=== PATIENT | female | born 1930 | race Caucasian/White ===

== ENCOUNTER 2017-04-27 16:58 | Emergency (ER) | payer MEDICARE, MEDICAID ==
[~2017-04-27] VITALS: Ht 152.4 cm; Wt 72.7 kg
[~2017-04-27 16:58] MED LIST: ALEN70TA2 PO; CHOL3000 PO; CLOT12CR TP; FERR-83 PO; HEPARIN SOD SUBQ; LEVO750T9 PO; METH500T5 PO; METO5TAB78 PO; METRONIDAZOLE PO; MYCC TOPICAL; Oxycodone Hcl PO; POLY17PO6 PO
[2017-04-27 17:01] VITALS: BP 164/77; PULSE 97; RESP 16; O2SAT 100
--- NOTE | 2017-04-27 21:23 | ED.REPORT ---
HPI-Trauma Minor / Fall Date of Service Apr 27, 2017 ED Provider: Dr. Taylor Pt is an 86 y/o female w/ a hx of HTN, osteoporosis, presenting to the ED with her daughter due to mechanical ground level fall which occurred today. The patient tripped over a cow trough and landed hitting the left side of her face and chest. She c/o associated left-sided pleuritic chest pain. She does not feel any clicks or movements with deep breaths. Pt denies change in LOC, vision changes, neck pain, abdominal pain, vomiting. She does not take anticoagulants. Nursing Notes Stated Complaint: FELL AND HIT FACE AND RIGHT SIDE Chief Complaint: Multiple Trauma/Fall Nursing Notes Reviewed: Yes Allergies: Coded Allergies: Penicillins (Verified Allergy, Severe, Anaphylaxis, 10/13/14) Sulfa (Sulfonamide Antibiotics) (Verified Allergy, Intermediate, SOB, 10/13) procaine (Verified Allergy, Intermediate, SOB, 10/13/14) Scheduled ([Heparin Sod (Porcine)]) 5,000 UNIT/1 ML VIAL 5,000 UNIT SUBQ Q12 ([metroNIDazole]) 250 MG TABLET 250 MG PO Q6 Alendronate Sodium (Fosamax) 70 Mg Tablet 70 MG PO QW Saturdays Cholecalciferol (Vitamin D3) (Vitamin D3) 3,000 Unit Tablet 3,000 UNIT PO DAILY Clotrimazole (Lotrimin AF) 12 Gm Cream..g. 1 APPL TP BID Ferrous Sulfate (Ferrous Sulfate) 325 Mg Tablet 325 MG PO TID Levofloxacin (Levaquin) 750 Mg Tablet 750 MG PO DAILYAC Methylcellulose (Citrucel) 500 Mg Tablet 500 MG PO BID Nystatin (Nystatin) 60 Applic/15 Gm Cream 1 APPLIC TOPICAL BID Polyethylene Glycol 3350 (Miralax) 17 Gm/Pkt Powd.pack 17 GM PO DAILY Scheduled PRN ([Oxycodone Hcl]) 5 MG TABLET 5-10 MG PO Q4H PRN PRN For Pain Metoclopramide (Reglan) 5 Mg Tablet 5-10 MG PO Q6H PRN PRN For Nausea Polyethylene Glycol 3350 (Miralax) 17 Gm Powd.pack 17 GM PO HS PRN PRN For Constipation General Time Seen by MD: 21:22 Chief Complaint Fall Hx Obtained From: Patient Arrived By: Walk-in Onset Occurred: 1 - 4 hours ago Location: Chest Face Quality: Painful Severity: Current: Mild Severity: Maximum: Moderate Past Medical History Past Medical History Hypertension Osteoporosis Past Surgical History Hernia repair Colon polyp removal Colostomy Fistula Smoking History Former Smoker Ambulatory Status Independent Review of Systems Constitutional: Denies: Fever Respiratory: Reports: Pleuritic pain, Denies: Non-productive cough, Shortness of breath Musculoskeletal: Denies: Neck pain Skin: Reports Bruising Complete sys rev & neg: except as marked. Cardiovascular: Reports: Chest pain GI: Denies: Abdominal pain, Vomiting Physical Exam Initial Vital Signs Vital Signs (First) Date Time Temp Pulse Resp B/P Pulse Ox O2 Delivery O2 Flow Rate FiO2 04/27/17 17:01 37.3 97 16 164/77 100 Room Air Initial VS: Reviewed, Vital signs normal Cardiovascular: Regular rate & rhythm, Heart sounds normal, Intact distal pulses Abdomen / GI: Soft, Non-tender, No guarding, No rebound, No distention Skin: Warm, Dry, No cyanosis Neurologic: Alert, Oriented, Nonfocal Psychiatric: Mood/affect normal, Behavior normal, Normal thought content General/Constitutional: Awake, Alert, No acute distress, Cooperative, Not toxic appearing Neck: Atraumatic, Supple, No meningismus, Full range of motion, No swelling, Non-tender, No midline vertebral tend, No masses, No crepitus, No tracheal deviation No pain with range of motion Head / Eyes: Normocephalic, PERRL, EOMI, No photophobia Left orbit is tender with mild eccymosis over the corner of the eye No crepitus Respiratory / Chest: Atraumatic, Breath sounds NL, Breath sounds = bilat, No respiratory distress, No rales, No rhonchi, No wheezing, No retractions, No stridor, No chest wall deformity, No crepitus No bruising over the chest Tender over left lateral ribs Upper Extremity / MS: Atraumatic, Full range of motion, No erythema, No deformity, Neurologic intact, Vascular intact Lower Extremity / Pelvis / MS: Atraumatic, Full range of motion, No swelling, No deformity, Neurologic intact, Vascular intact, No ligamentous injury, Pelvis stable Interpretation & Diagnostics X-Ray Interpretation Xray Interpretation: Negative Study Performed: Facial bones Interpretation / Wet Read by: Wet read ED physician Xray Interpretation: Negative Study Performed: Ribs Interpretation / Wet Read by: Wet read ED physician Re-Eval/Medical Decision Med Decision/Clinical Course Elderly 86-year-old had a ground-level fall just due to tripping without syncope without significant loss of consciousness or alteration. Sustained a contusion on her left orbit without evidence of fracture without blood in the sinuses. Sustained no apparent neck injury or other head injury. She has tenderness over her ribs but benign x-ray with no hemothorax no pneumothorax and no displaced fractures noted. Breathing well with mild discomfort and no crepitus. Home with routine supportive measures, deep breathing, and discharged now in stable condition. Prompted to return immediately for shortness of breath or other new issues. Re-Evaluation/Progress : Time of Eval: 21:58 Re-Evaluation/Progress Note: Pt rechecked. Informed pt of plan for discharge. Pt understands and agrees with plan for discharge. F/U instructions and RTER warnings given. All questions addressed. Counseled Regarding: Diagnosis, Need for follow-up, When/why to return to ED Discharge & Departure Impression: Primary Impression: Contusion of face Encounter type: initial encounter Qualified Code: S00.83XA - Contusion of other part of head, initial encounter Additional Impressions: Contusion of rib on left side Encounter type: initial encounter Qualified Code: S20.212A - Contusion of left front wall of thorax, initial encounter Fall from ground level Disposition: Home Discharge Condition All VS Reviewed: Yes Condition: Stable Patient Instructions: Contusion in Adults (ED) Additional Instructions: We see no evidence of fracture on your x-rays. Rib fractures can be present and not visible on x-ray, but the management is the same. There is no apparent displacement, no damage to the lung, no bleeding. Remember to take three deep breaths every 15-20 minutes just to avoid collapse of the lung underlying the painful area. Tylenol Extra Strength or ibuprofen as needed for pain. Follow-up with your doctor in the office. Return for any immediate issues over the weekend. Referrals: HERMANN RAMIREZ MD (PCP) Scribe Attestation Portions of this note were transcribed by Martin Valentine. I, Dr. Taylor personally performed the history, physical exam and medical decision-making; I reviewed and confirmed the accuracy of the information in the transcribed note. copies to: HERMANN RAMIREZ MD, Christopher W MD Apr 27, 2017 21:23 MARTIN VALENTINE Apr 27, 2017 21:29
--- NOTE | 2017-04-27 22:01 | DRSVH ---
PROCEDURE: X-RAY FACIAL BONES, LESS THAN THREE VIEWS ([id number]) INDICATIONS: fall, left rib pain TECHNIQUE: 3 views of the facial bones were acquired. COMPARISON: None. FINDINGS: Sinuses: Visualized sinuses demonstrate no air-fluid levels or mucosal thickening. Bones: No fractures. No suspicious bony lesions. Orbital rims and zygomatic arches appear intact. Soft tissues: No suspicious soft tissue densities. IMPRESSION: No acute trauma found. Dictated by: Cj Duran M.D. on 04/27/2017 at 21:59 Approved by: Cj Duran M.D. on 04/27/2017 at 22:00
--- NOTE | 2017-04-27 22:03 | DRSVH ---
PROCEDURE: X-RAY LEFT RIBS INCLUDEING PA CHEST, MINUMUM THREE VIEWS ([id number]) INDICATIONS: fall, left rib pain TECHNIQUE: 2 views of the left ribs were acquired, along with a single view chest. COMPARISON: None. FINDINGS: Surgical changes and devices: None. Bones and chest wall: No fractures or dislocations. No suspicious bony lesions. Overlying soft tis sues appear unremarkable. Lungs and pleura: No pleural effusions or pneumothorax. Lungs appear clear. Mediastinum: Mediastinal contours appear normal except for what appears to be a previously present m oderately large hiatal hernia behind the heart. Heart size is normal. IMPRESSION: Moderately large hiatal hernia behind the heart, no acute trauma to the chest is found. Dictated by: Cj Duran M.D. on 04/27/2017 at 22:00 Approved by: Cj Duran M.D. on 04/27/2017 at 22:01
== END 2017-04-27 22:02 | disposition home or self-care (01) ==
LOC: SED 16:58
DX: S00.83XA Contusion of other part of head, initial encounter (principal); S20.212A Contusion of left front wall of thorax, initial encounter; W01.198A Fall on same level from slipping, tripping and stumbling with subsequent striking against other object, initial encounter; Y93.89 Activity, other specified; Y92.89 Other specified places as the place of occurrence of the external cause; Y99.8 Other external cause status; I10 Essential (primary) hypertension; Z98.890 Other specified postprocedural states; Z93.3 Colostomy status; Z87.891 Personal history of nicotine dependence